=== PATIENT | male | born 1985 | race Caucasian/White ===

== ENCOUNTER 2018-08-24 07:29 | Emergency (ER) | payer OTHER, SELFPAY ==
[~2018-08-24] VITALS: Ht 193 cm; Wt 109.5 kg
[2018-08-24] MEDS ORDERED: ONDANSETRON ODT 4 MG ONE (07:56)
[2018-08-24] MEDS ORDERED: ONDANSETRON ODT 4 MG PO ONE (08:00)
[2018-08-24 08:56] VITALS: BP 118/69
== END 2018-08-24 09:11 | disposition home or self-care (01) ==
LOC: ED 08:50
DX: R11.2 Nausea with vomiting, unspecified (principal); B34.9 Viral infection, unspecified; F17.210 Nicotine dependence, cigarettes, uncomplicated
CPT/HCPCS: 99283; Q0162

== ENCOUNTER 2019-01-13 08:31 | Emergency (ER) | payer OTHER ==
[~2019-01-13] VITALS: Ht 185.4 cm; Wt 97.6 kg
--- NOTE | 2019-01-13 09:29 | NUR ---
PT TO RAD, AMBULATORY WITH STEADY GAIT.
[2019-01-13] MEDS ORDERED: IBUPROFEN 600 MG TABLET ONE (09:47)
[2019-01-13 09:53] LABS: MICROSCOPIC NOT IND
[2019-01-13] MEDS ORDERED: IBUPROFEN 600 MG TABLET PO ONE (10:00)
[2019-01-13 10:08] LABS: CULTURE INDICATED? NO
[2019-01-13 10:20] LABS: RAPID INFLUENZA A POSITIVE (Negative); RAPID INFLUENZA B Negative (Negative)
[2019-01-13 10:48] VITALS: BP 128/69
--- NOTE | 2019-01-13 10:49 | NUR ---
Patient/Caregiver given discharge instructions and they have confirmed that they understand the instructions. Patient ambulatory with steady gait. Pt left with all personal belongings.
== END 2019-01-13 11:20 | disposition home or self-care (01) ==
LOC: ED 11:01
DX: G89.11 Acute pain due to trauma (principal); J10.1 Influenza due to other identified influenza virus with other respiratory manifestations; R10.9 Unspecified abdominal pain; F17.210 Nicotine dependence, cigarettes, uncomplicated; X58.XXXA Exposure to other specified factors, initial encounter; Y93.89 Activity, other specified; Y92.89 Other specified places as the place of occurrence of the external cause; Y99.8 Other external cause status
CPT/HCPCS: 71046; 81003; 87400; 99284